=== PATIENT | male | born 1985 | race Caucasian/White ===

== ENCOUNTER 2016-12-16 20:20 | Emergency (ER) | payer OTHER ==
[2016-12-16 20:35] VITALS: BP 132/76; PULSE 87; RESP 18; TEMP 97.7
[2016-12-16] MEDS ORDERED: SODIUM CHLORIDE 0.9% 1,000 ML IV STA (20:44)
[2016-12-16] MEDS ORDERED: MORPHINE SULFATE 4 MG/ML SYRINGE IV STA (21:05)
[2016-12-16 21:10] LABS: Aty Lym Flag Slight; CH 31.3; CHCM 33.8; HDW 2.64; HGB 14.1 gm/dL (13.0-17.5); MCH 31.1 pg (25.0-35.0); MCHC 33.5 g/dL (31.0-37.0); MCV 92.9 fL (80.0-100.0); Mean Platelet Volume 6.5; RBC 4.52 m/uL (4.30-5.90); WBC 7.1 k/uL (3.8-10.6); WBC (Perox) 7.01
[2016-12-16] MEDS ORDERED: diphenhydrAMINE 50 MG/ML 1 ML VIAL IVP STA (21:20)
[2016-12-16 21:25] LABS: Appearance,Urine Cloudy (Clear); Bilirubin,Urine Negative (Negative); Glucose,Urine (UA) Negative (Negative); Ketones,Urine Negative (Negative); Leukocyte Esterase,Urine Trace (Negative); Mucus,Urine Rare /hpf; Nitrite,Urine Negative (Negative); Particle Count 13303; Protein,Urine 2+ (Negative); RBC,Urine >182 /hpf (0-5); Specific Gravity,Urine 1.013 (1.001-1.035); Squamous Epithelial Cell,Urine 10 /hpf (0-4); UA Billing (MACRO vs. MICRO) MICRO; Urobilinogen,Urine <2.0 mg/dL (<2.0); WBC,Urine 64 /hpf (0-5)
[2016-12-16 21:26] LABS: ALT 67 U/L (21-72); AST 36 U/L (17-59); Alkaline Phosphatase 92 U/L (38-126); Anion Gap 12 mmol/L; Blood Urea Nitrogen 16 mg/dL (9-20); Calcium 9.4 mg/dL (8.4-10.2); Carbon Dioxide 25 mmol/L (22-30); Chloride 104 mmol/L (98-107); Glucose 89 mg/dL (74-99); Non-African American GFR(MDRD) >60 (>60 ml/min/1.73 sqM); Potassium 4.2 mmol/L (3.5-5.1); Sodium 141 mmol/L (137-145); Total Bilirubin 0.4 mg/dL (0.2-1.3); Total Protein 7.2 g/dL (6.3-8.2)
--- NOTE | 2016-12-16 21:39 | ED ---
Abdominal Pain HPI - General Chief Complaint: Abdominal Pain Stated Complaint: Pain on RIght side Time Seen by Provider: 12/16/16 20:37 Source: patient Mode of arrival: ambulatory Limitations: no limitations - History of Present Illness Initial Comments: Alex complains of abdominal pain. He has right-sided flank pain. Nothing makes it better or worse. It is sharp. He has no fever, chills, chest pain or shortness of breath. He has no nausea or vomiting. He has no loss of bowel or bladder continence. He had a kidney stone a long time ago. He took no medication for his symptoms. He denies any injuries. - Related Data Home Medications Medication Instructions Recorded Confirmed Acetaminophen [Tylenol] 650 mg PO Q4H PRN 12/16/16 12/16/16 Citalopram Hydrobromide [CeleXA] 40 mg PO DAILY 12/16/16 12/16/16 Methadone [Dolophine] 30 mg PO DAILY 12/16/16 12/16/16 busPIRone HCL [Buspar] 30 mg PO DAILY 12/16/16 12/16/16 Allergies Allergy/AdvReac Type Severity Reaction Status Date / Time haloperidol [From Haldol] Allergy Unknown Verified 12/16/16 20:46 ketorolac [From Toradol] Allergy Unknown Verified 12/16/16 20:46 latex Allergy Unknown Verified 12/16/16 20:46 Review of Systems ROS Statement: Those systems with pertinent positive or pertinent negative responses have been documented in the HPI. ROS Other: All systems not noted in ROS Statement are negative. Past Medical History Past Medical History: No Reported History History of Any Multi-Drug Resistant Organisms: None Reported Past Surgical History: No Surgical Hx Reported Past Psychological History: Anxiety, Bipolar Smoking Status: Current every day smoker Past Alcohol Use History: None Reported Past Drug Use History: None Reported General Exam Limitations: no limitations General appearance: alert, in no apparent distress Head exam: Present: atraumatic, normocephalic, normal inspection Eye exam: Present: normal appearance, PERRL, EOMI. Absent: scleral icterus, conjunctival injection, periorbital swelling ENT exam: Present: normal exam, mucous membranes moist Neck exam: Present: normal inspection. Absent: tenderness, meningismus, lymphadenopathy Respiratory exam: Present: normal lung sounds bilaterally. Absent: respiratory distress, wheezes, rales, rhonchi, stridor Cardiovascular Exam: Present: regular rate, normal rhythm, normal heart sounds. Absent: systolic murmur, diastolic murmur, rubs, gallop, clicks GI/Abdominal exam: Present: soft, normal bowel sounds. Absent: distended, tenderness, guarding, rebound, rigid Extremities exam: Present: normal inspection, full ROM, normal capillary refill. Absent: tenderness, pedal edema, joint swelling, calf tenderness Back exam: Present: normal inspection Neurological exam: Present: alert, oriented X3, CN II-XII intact Psychiatric exam: Present: normal affect, normal mood Skin exam: Present: warm, dry, intact, normal color. Absent: rash Course Vital Signs 12/16/16 20:25 Temperature 97.7 F Pulse Rate 87 Respiratory 18 Rate Blood Pressure 132/76 O2 Sat by Pulse 96 Oximetry Medical Decision Making - Medical Decision Making Patient complained of right-sided flank pain. Patient has no kidney stones in the ureter or bladder. He does have a couple 1 mm scattered calcifications in the kidneys. 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 Urinalysis is negative for infection. Patient is stable for discharge. - Lab Data Result diagrams: 12/16/16 20:58 12/16/16 20:58 Lab Results 12/16/16 12/16/16 12/16/16 Range/Units 20:58 20:58 20:58 WBC 7.1 (3.8-10.6) k/uL RBC 4.52 (4.30-5.90) m/uL Hgb 14.1 (13.0-17.5) gm/dL Hct 42.0 (39.0-53.0) % MCV 92.9 (80.0-100.0) fL MCH 31.1 (25.0-35.0) pg MCHC 33.5 (31.0-37.0) g/dL RDW 14.0 (11.5-15.5) % Plt Count 360 (150-450) k/uL Neutrophils % (Manual) 46.0 % Lymphocytes % (Manual) 45.0 % Monocytes % (Manual) 4.0 % Eosinophils % (Manual) 4.0 % Basophils % (Manual) 1.0 % Neutrophils # (Manual) 3.3 (1.3-7.7) k/uL Lymphocytes # (Manual) 3.2 (1.0-4.8) k/uL Monocytes # (Manual) 0.3 (0-1.0) k/uL Eosinophils # (Manual) 0.3 (0-0.7) k/uL Basophils # (Manual) 0.1 (0-0.2) k/uL Nucleated RBCs 0 (0-0) /100 WBC Manual Slide Review Performed Sodium 141 (137-145) mmol/L Potassium 4.2 (3.5-5.1) mmol/L Chloride 104 (98-107) mmol/L Carbon Dioxide 25 (22-30) mmol/L Anion Gap 12 mmol/L BUN 16 (9-20) mg/dL Creatinine 0.91 (0.66-1.25) mg/dL Est GFR (MDRD) Af Amer >60 (>60 ml/min/1.73 sqM) Est GFR (MDRD) Non-Af >60 (>60 ml/min/1.73 sqM) Glucose 89 (74-99) mg/dL Calcium 9.4 (8.4-10.2) mg/dL Total Bilirubin 0.4 (0.2-1.3) mg/dL AST 36 (17-59) U/L ALT 67 (21-72) U/L Alkaline Phosphatase 92 (38-126) U/L Total Protein 7.2 (6.3-8.2) g/dL Albumin 4.1 (3.5-5.0) g/dL Lipase 107 (23-300) U/L Urine Color Dark Red Urine Appearance Cloudy (Clear) Urine pH 7.0 (5.0-8.0) Ur Specific Center [place] 1.013 (1.001-1.035) Urine Protein 2+ H (Negative) Urine Glucose (UA) Negative (Negative) Urine Ketones Negative (Negative) Urine Blood Large H (Negative) Urine Nitrate Negative (Negative) Urine Bilirubin Negative (Negative) Urine Urobilinogen <2.0 (<2.0) mg/dL Ur Leukocyte Esterase Trace H (Negative) Urine RBC >182 H (0-5) /hpf Urine WBC 64 H (0-5) /hpf Urine WBC Clumps Many H (None) /hpf Ur Squamous Epith Cells 10 H (0-4) /hpf Urine Mucus Rare H (None) /hpf Disposition Clinical Impression: Calculus of kidney Disposition: HOME SELF-CARE Condition: Good Instructions: Kidney Stones (ED) Time of Disposition: 22:05
[2016-12-16 21:47] LABS: Add Differential Manual Differential
[2016-12-16 21:52] LABS: Nucleated Red Blood Cells 0 /100 WBC (0-0); Total Cells Counted 100
[2016-12-16 21:54] LABS: Manual Review Performed
--- NOTE | 2016-12-16 22:03 | CT ---
EXAMINATION TYPE: CT abdomen pelvis wo con DATE OF EXAM: 12/16/2016 9:39 PM COMPARISON: Supine one view HISTORY: Right flank pain. CT DLP: 1199.00 mGycm Automated exposure control for dose reduction was used. TECHNIQUE: Helical acquisition of images was performed from the lung bases through the pelvis. FINDINGS: There are a few scattered bilateral 1 mm nonobstructing renal calcifications, greater on the ipsilate ral right. However, there is no hydronephrosis and no hydroureter on the right or the left. The urina ry bladder is unremarkable. There is no bowel obstruction. The appendix has normal appearance. The anterior abdominal wall is int act. Solid and hollow viscera are otherwise unremarkable. Skeletal structures are unremarkable as are visualized lower thoracic structures. Limitation: Without intravenous or oral contrast, there is limited sensitivity for focal visceral or intravascular pathology. IMPRESSION: 1. NO ACUTE PROCESSES. 2. SPECIFICALLY, NEGATIVE FOR RIGHT OBSTRUCTIVE UROPATHY.
== END 2016-12-16 22:29 | disposition home or self-care (01) ==
LOC: EC 20:20
DX: N20.0 Calculus of kidney (principal); F41.9 Anxiety disorder, unspecified; Z79.899 Other long term (current) drug therapy; F31.9 Bipolar disorder, unspecified; F17.200 Nicotine dependence, unspecified, uncomplicated; Z87.442 Personal history of urinary calculi; Z88.8 Allergy status to other drugs, medicaments and biological substances; Z91.040 Latex allergy status; Z88.6 Allergy status to analgesic agent
CPT/HCPCS: 36415; 80053; 83690; 85025; 81001; 74176; 99284; 96374; 96375; 96361; J2270; J1200